=== PATIENT | female | born 1990 | race Caucasian/White ===

== ENCOUNTER → 2019-02-04 | Outpatient (CLI) | payer BC ==
[~2019-02-04] MED LIST: CEPHALEXIN500 M1 PO; MAGIC MOUTH PO; NAPROSYN500 MG PO; NORCO 325 MG-51 TAB PO; NYSTATIN 100MU/ML PO; PERCOCET 325 MG1 TA2 PO; ZOFRAN ODT4 MG PO
== END ==
LOC: COL.RAD 10:12
DX: S83.221A Peripheral tear of medial meniscus, current injury, right knee, initial encounter (principal); M76.41 Tibial collateral bursitis [Pellegrini-Stieda], right leg

== ENCOUNTER 2019-11-16 23:13 | Emergency (ER) | payer SELFPAY ==
[~2019-11-16] VITALS: Ht 167.6 cm; Wt 109.1 kg
[2019-11-17 01:20] VITALS: BP 138/94; PULSE 85; TEMP 98.2
== END 2019-11-17 01:30 | disposition home or self-care (01) ==
LOC: COL.ER 23:13
DX: J06.9 Acute upper respiratory infection, unspecified (principal); Z90.89 Acquired absence of other organs

== ENCOUNTER 2020-02-25 15:15 | Emergency (ER) | payer BC ==
[~2020-02-25] VITALS: Ht 167.6 cm; Wt 109.1 kg
[2020-02-25 15:17] VITALS: TEMP 98.1
[2020-02-25 17:10] VITALS: BP 118/83; PULSE 64
== END 2020-02-25 17:10 | disposition home or self-care (01) ==
LOC: COL.ER 15:15
DX: R06.02 Shortness of breath (principal); R07.89 Other chest pain; F41.9 Anxiety disorder, unspecified; Z20.828 Contact with and (suspected) exposure to other viral communicable diseases; Z90.89 Acquired absence of other organs

== ENCOUNTER 2020-04-30 23:57 | Emergency (ER) | payer BC ==
[~2020-04-30] VITALS: Ht 167.6 cm; Wt 111.4 kg
[2020-05-01 00:04] VITALS: BP 122/86; TEMP 97.7
[2020-05-01 00:25] LABS: COLLECTION METHOD CATHETER
[2020-05-01] MEDS ORDERED: PROZAC 10MG10 MG PO (00:26)
[2020-05-01] MEDS ORDERED: INDERAL 10MG10 MG PO (00:26)
[2020-05-01 00:35] LABS: MUCOUS Present /lpf; PH 5 (5-8); SQUAMOUS EPITHELIAL 0-2 /hpf; URINE APPEARANCE Hazy; URINE BACTERIA None Seen /hpf; URINE BILIRUBIN Negative (NEGATIVE); URINE BLOOD Negative (NEGATIVE); URINE CALCIUM OXALATE CRYSTAL Present /hpf; URINE COLOR Yellow; URINE GLUCOSE Negative (NEGATIVE); URINE KETONE Negative (NEGATIVE); URINE LEUKOCYTE ESTERASE Trace (NEGATIVE); URINE NITRATE Negative (NEGATIVE); URINE PROTEIN(semi-quant) Negative (NEGATIVE); URINE RBC 0-2 /hpf; URINE UROBILINOGEN Negative (NEGATIVE)
[2020-05-01 00:52] LABS: BASO % 0.4 % (0.0-2.0); EOS # 0.2 (0.0-0.7); EOS % 2.1 % (0-4.0); GRAN # 3.8 (1.4-6.5); GRAN % 53.6 % (42.2-75.2); HEMATOCRIT 38.2 % (37.0-47.0); HEMOGLOBIN 12.8 g/dl (12.5-16.0); LYMPH # 2.3 (1.2-3.4); LYMPH % 31.6 % (20.0-51.0); MEAN CELL VOLUME 93 fl (80.0-100.0); MEAN CORPUSCULAR HEMOGLOBIN 31 pg (27.0-31.0); MEAN CORPUSCULAR HGB CONC 34 g/dl (33.0-37.0); MONO # 0.9 (0.1-0.6); PLATELET COUNT 370 K/mm3 (130-400); RED BLOOD COUNT 4.09 M/mm3 (4.10-5.30); REDCELL DISTRIBUTION WIDTH-CV 11.9 % (11.5-14.5)
[2020-05-01 01:04] LABS: ALANINE AMINOTRANSFERASE 31 U/L (4-34); ALBUMIN 4.1 gm/dL (3.5-5.0); ALKALINE PHOSPHATASE 68 U/L (50-136); ANION GAP 7 mmol/L (7-16); AST,SGOT 27 U/L (15-37); BILIRUBIN,TOTAL 0.3 mg/dL (0.0-1.0); BLOOD UREA NITROGEN 12 mg/dL (7-17); CALCIUM 8.6 mg/dL (8.4-10.2); CARBON DIOXIDE 24 mmol/L (22-30); CHLORIDE 107 mmol/L (98-107); CREATININE, serum 0.56 (0.52-1.25); GLUCOSE 108 mg/dL (74-106); POTASSIUM 3.7 mmol/L (3.4-5.0); SODIUM 138 mmol/L (137-145); TOTAL PROTEIN 7.6 gm/dL (6.4-8.2)
[2020-05-01 01:39] LABS: HCG,QUANTITATIVE < 2 mIU/mL (0-5)
[2020-05-01] MEDS ORDERED: CIPRO 500MG TA500 MG PO (01:46)
[2020-05-01 02:14] VITALS: PULSE 94
== END 2020-05-01 02:15 | disposition home or self-care (01) ==
LOC: COL.ER 23:57
PROVIDERS: Nurse Practitioner Primary Care
DX: R10.31 Right lower quadrant pain (principal); F41.9 Anxiety disorder, unspecified; F32.9 Major depressive disorder, single episode, unspecified; Z79.899 Other long term (current) drug therapy; Z98.890 Other specified postprocedural states
CPT/HCPCS: J1170; J1885; J7030

== ENCOUNTER 2020-05-31 02:59 | Emergency (ER) | payer BC ==
[~2020-05-31] VITALS: Ht 167.6 cm; Wt 118.2 kg
[~2020-05-31 02:59] MED LIST changes: +CIPRO 500MG TA500 MG PO; +INDERAL 10MG10 MG PO; +PROZAC 10MG10 MG PO
[2020-05-31 03:02] VITALS: BP 129/84; TEMP 97.8
[2020-05-31 03:24] LABS: COLLECTION METHOD CLEAN CATCH
[2020-05-31 03:30] LABS: MUCOUS Present /lpf; PH 6 (5-8); URINE APPEARANCE Hazy; URINE BACTERIA None Seen /hpf; URINE BILIRUBIN Negative (NEGATIVE); URINE BLOOD 2+ (NEGATIVE); URINE COLOR Yellow; URINE GLUCOSE Negative (NEGATIVE); URINE KETONE Negative (NEGATIVE); URINE LEUKOCYTE ESTERASE Negative (NEGATIVE); URINE NITRATE Negative (NEGATIVE); URINE PROTEIN(semi-quant) Negative (NEGATIVE); URINE UROBILINOGEN Negative (NEGATIVE)
[2020-05-31 03:55] LABS: BASO % 0.5 % (0.0-2.0); EOS # 0.1 (0.0-0.7); EOS % 1.7 % (0-4.0); GRAN # 5.4 (1.4-6.5); GRAN % 64.2 % (42.2-75.2); HEMATOCRIT 39.2 % (37.0-47.0); HEMOGLOBIN 13.3 g/dl (12.5-16.0); LYMPH # 2.2 (1.2-3.4); MEAN CELL VOLUME 94 fl (80.0-100.0); MEAN CORPUSCULAR HEMOGLOBIN 32 pg (27.0-31.0); MEAN CORPUSCULAR HGB CONC 34 g/dl (33.0-37.0); MONO # 0.6 (0.1-0.6); MONO % 7.4 % (1.7-9.3); PLATELET COUNT 357 K/mm3 (130-400); RED BLOOD COUNT 4.16 M/mm3 (4.10-5.30); REDCELL DISTRIBUTION WIDTH-CV 11.8 % (11.5-14.5)
[2020-05-31 04:08] LABS: ALBUMIN 4.4 gm/dL (3.5-5.0); BILIRUBIN,TOTAL 0.5 mg/dL (0.0-1.0); C-REACTIVE PROTEIN 0.8 mg/dL (0.0-0.9); CALCIUM 9.4 mg/dL (8.4-10.2); CREATININE, serum 0.7 (0.52-1.25); TOTAL PROTEIN 8.1 gm/dL (6.4-8.2)
[2020-05-31 05:11] VITALS: PULSE 78
== END 2020-05-31 05:11 | disposition home or self-care (01) ==
LOC: COL.ER 02:59
PROVIDERS: Emergency Medicine
DX: R10.31 Right lower quadrant pain (principal); Z87.442 Personal history of urinary calculi; Z90.49 Acquired absence of other specified parts of digestive tract; Z90.721 Acquired absence of ovaries, unilateral
CPT/HCPCS: J1885; J7030

== ENCOUNTER 2020-09-02 19:29 | Emergency (ER) | payer BC ==
[~2020-09-02] VITALS: Ht 167.6 cm; Wt 113.6 kg
[2020-09-02 20:13] VITALS: TEMP 98.6
[2020-09-02] MEDS ORDERED: PROZAC40 MG PO (21:35)
[2020-09-02] MEDS ORDERED: INDERAL 20MG20 MG PO (21:36)
[2020-09-02] MEDS ORDERED: VYVANSE50 MG PO (21:37)
[2020-09-02 23:20] VITALS: BP 136/72; PULSE 83
== END 2020-09-02 23:20 | disposition home or self-care (01) ==
LOC: COL.ER 19:29
DX: S93.402A Sprain of unspecified ligament of left ankle, initial encounter (principal); F41.9 Anxiety disorder, unspecified; F32.9 Major depressive disorder, single episode, unspecified; X58.XXXA Exposure to other specified factors, initial encounter; Y92.009 Unspecified place in unspecified non-institutional (private) residence as the place of occurrence of the external cause

== ENCOUNTER 2022-03-14 08:20 | Emergency (ER) | payer BC ==
[~2022-03-14] VITALS: Ht 167.6 cm; Wt 127.3 kg
[~2022-03-14 08:20] MED LIST changes: +INDERAL 20MG20 MG PO; +PROZAC40 MG PO; +VYVANSE50 MG PO
[2022-03-14 08:25] VITALS: BP 129/88; TEMP 98.6
[2022-03-14] MEDS ORDERED: CLEOCIN HCL300 MG PO (08:42)
[2022-03-14 08:47] VITALS: PULSE 75
[2022-03-15] MEDS ORDERED: PREDNISONE20 MG PO (08:57)
[2022-03-15] MEDS ORDERED: NORCO 325 MG-51 TAB PO (09:03)
== END 2022-03-14 08:47 | disposition home or self-care (01) ==
LOC: COL.ER 08:20
DX: K11.20 Sialoadenitis, unspecified (principal)

== ENCOUNTER 2022-03-15 08:20 | Emergency (ER) | payer BC ==
[~2022-03-15] VITALS: Ht 167.6 cm; Wt 127.3 kg
[~2022-03-15 08:20] MED LIST changes: +CLEOCIN HCL300 MG PO
[2022-03-15 08:35] VITALS: TEMP 98.4
[2022-03-15] MEDS ORDERED: PREDNISONE20 MG PO (08:57)
[2022-03-15] MEDS ORDERED: NORCO 325 MG-51 TAB PO (09:03)
[2022-03-15 09:37] LABS: BASO % 0.5 % (0.0-2.0); EOS # 0.2 K/mm3 (0.0-0.7); EOS % 2.3 % (0.0-4.0); GRAN # 4.2 K/mm3 (1.4-6.5); GRAN % 65.4 % (42.2-75.2); HEMATOCRIT 37.7 % (37.0-47.0); LYMPH # 1.4 K/mm3 (1.2-3.4); LYMPH % 22.3 % (20.0-51.0); MEAN CELL VOLUME 90 fl (80.0-100.0); MEAN CORPUSCULAR HEMOGLOBIN 31 pg (27-31); MEAN CORPUSCULAR HGB CONC 35 g/dl (33.0-37.0); MEAN PLATELET VOLUME 10.4 fl (7.4-10.4); MONO # 0.6 K/mm3 (0.1-0.6); MONO % 9.3 % (1.7-9.3); PLATELET COUNT 347 K/mm3 (130-400); RED BLOOD COUNT 4.19 M/mm3 (4.10-5.30)
[2022-03-15 10:01] LABS: ALBUMIN 3.6 gm/dL (3.5-5.0); BILIRUBIN,TOTAL 0.6 mg/dL (0.2-1.2); CREATININE, serum 0.64 mg/dL (0.57-1.11); POTASSIUM 4.1 mmol/L (3.5-4.5); TOTAL PROTEIN 6.7 gm/dL (6.2-8.1)
[2022-03-15 10:36] VITALS: BP 135/93; PULSE 71
== END 2022-03-15 10:38 | disposition home or self-care (01) ==
LOC: COL.ER 08:20
PROVIDERS: Family Medicine
DX: K11.20 Sialoadenitis, unspecified (principal)
CPT/HCPCS: J0696; J1885; J2930

== ENCOUNTER 2023-09-03 10:07 | Emergency (ER) | payer BC ==
[~2023-09-03] VITALS: Ht 167.6 cm; Wt 115.9 kg
[~2023-09-03 10:07] MED LIST changes: +PREDNISONE20 MG PO
[2023-09-03 10:27] VITALS: TEMP 98
[2023-09-03 10:55] LABS: BASO % 0.3 % (0.0-2.0); EOS # 0.1 K/mm3 (0.0-0.7); EOS % 1.8 % (0.0-4.0); GRAN % 49.2 % (42.2-75.2); HEMOGLOBIN 14.2 g/dl (12.5-16.0); LYMPH # 2.5 K/mm3 (1.2-3.4); LYMPH % 39.8 % (20.0-51.0); MEAN CELL VOLUME 91 fl (80.0-100.0); MEAN CORPUSCULAR HEMOGLOBIN 32 pg (27-31); MEAN CORPUSCULAR HGB CONC 35 g/dl (33.0-37.0); MEAN PLATELET VOLUME 9.9 fl (7.4-10.4); MONO # 0.5 K/mm3 (0.1-0.6); MONO % 8.6 % (1.7-9.3); PLATELET COUNT 363 K/mm3 (130-400); REDCELL DISTRIBUTION WIDTH-CV 11.9 % (11.5-14.5)
[2023-09-03 10:55] LABS: COLLECTION METHOD CLEAN CATCH
[2023-09-03 11:14] LABS: ALBUMIN 3.8 gm/dL (3.5-5.0); BILIRUBIN,TOTAL 0.8 mg/dL (0.2-1.2); CALCIUM 8.8 mg/dL (8.4-10.2); CREATININE, serum 0.66 mg/dL (0.57-1.11); TOTAL PROTEIN 7.4 gm/dL (6.2-8.1)
[2023-09-03 11:19] LABS: PH 5.5 (5.0-8.5); URINE APPEARANCE Clear (CLEAR/HAZY); URINE BACTERIA None Seen /hpf (NONE SEEN); URINE BLOOD Negative (NEGATIVE); URINE COLOR Yellow (YELLOW); URINE GLUCOSE Negative (NEGATIVE); URINE KETONE Negative (NEGATIVE); URINE NITRATE Negative (NEGATIVE); URINE PROTEIN(semi-quant) Negative (NEGATIVE); URINE RBC 0-2 /hpf (0-2); URINE UROBILINOGEN 0.2 E.U/dL (0.2-1.0)
[2023-09-03 12:54] VITALS: BP 123/78; PULSE 73
== END 2023-09-03 12:54 | disposition home or self-care (01) ==
LOC: COL.ER 10:07
PROVIDERS: Physician Assistant
DX: O26.891 Other specified pregnancy related conditions, first trimester (principal); R10.31 Right lower quadrant pain; Z3A.01 Less than 8 weeks gestation of pregnancy; Z90.722 Acquired absence of ovaries, bilateral

== ENCOUNTER 2024-02-07 10:15 | Emergency (ER) | payer BC ==
[~2024-02-07] VITALS: Ht 167.6 cm; Wt 113.6 kg
[2024-02-07 10:23] VITALS: TEMP 98.5
[2024-02-07 10:56] VITALS: BP 129/83; PULSE 78
== END 2024-02-07 10:57 | disposition home or self-care (01) ==
LOC: COL.ER 10:15
DX: O99.891 Other specified diseases and conditions complicating pregnancy (principal); M54.16 Radiculopathy, lumbar region; Z3A.10 10 weeks gestation of pregnancy